=== PATIENT | female | born 1990 | race Two or more races ===

== ENCOUNTER 2018-03-14 00:37 | Emergency (ER) | payer OTHER ==
--- NOTE | 2018-03-14 00:46 | PDOC ---
History of Present Illness - General Chief Complaint: Pain, Acute Stated Complaint: ABDOMINAL PAIN Time Seen by Provider: 03/14/18 00:41 - History of Present Illness Initial Comments: 03/14/18 01:01 This otherwise healthy 27-year-old woman presents with a few hour history of suprapubic to right lower quadrant abdominal pain. Patient states that pain had sudden onset approximately 8:30 PM while she was taking a shower. She states that had a "drawing or twisting" quality initially and was felt in the suprapubic area. Soon radiated to the right lower quadrant and became sharp in nature. She has had some nausea but no vomiting. No fever/chills. She is noted moderate abdominal distention over the last few hours. She denies dysuria /hematuria/urinary frequency or urgency. She has had no constipation or diarrhea. There has been no unusual vaginal discharge recently. Last LMP was approximately 3 weeks ago and was normal. Patient had a similar but milder type of pain approximately 5 years ago when she had salpingitis. She was not admitted for this, stating that she was treated with outpatient antibiotics by her guitar repairer. Patient believes that she was told she has left-sided ovarian cyst but no previous episodes of ovarian cyst rupture. Past History - Past Medical History Allergies/Adverse Reactions: Allergies Allergy/AdvReac Type Severity Reaction Status Date / Time No Known Allergies Allergy Unverified 03/14/18 00:43 Home Medications: Ambulatory Orders Ketorolac Tromethamine [Toradol] 10 mg PO TID PRN #21 tablet 03/14/18 Review of Systems - Review of Systems Able to Perform ROS?: Yes Comments:: 12 point review of systems is negative except for what is noted in the history of present illness *Physical Exam - Physical Exam Comments: GENERAL: Adult female, alert and oriented 3, in moderate distress secondary to lower abdominal pain HEAD: Normal with no signs of trauma. EYES: PERRLA, EOMI, sclera anicteric, conjunctiva clear. ENT: Ears normal, nares patent, oropharynx clear without exudates. Moist mucous membranes. NECK: Normal range of motion, supple without lymphadenopathy, JVD, or masses. LUNGS: Breath sounds equal, clear to auscultation bilaterally. No wheezes, and no crackles. HEART:Regular rate and rhythm, normal S1 and S2 without murmur, rub or gallop. ABDOMEN:.normal bowel sounds mild distention, moderate right lower quadrant/ suprapubic tenderness without masses, mild rebound tenderness present EXTREMITIES: Normal range of motion, no edema. No clubbing or cyanosis. No erythema, or tenderness. NEUROLOGICAL: Cranial nerves II through XII grossly intact. Normal speech. No focal neurological deficits. MUSCULOSKELETAL: Back non-tender to palpation, no CVA tenderness SKIN: Warm, Dry, normal turgor, no rashes or lesions noted. ED Treatment Course - LABORATORY CBC & Chemistry Diagram: 03/14/18 01:05 03/14/18 01:05 Medical Decision Making - Medical Decision Making 03/14/18 02:39 Lab work (CBC, chemistry profile, UA, PGU) essentially normal except for slight elevation of WBC(10,300) Patient given a liter of normal saline IV and Toradol 30 mg IV. Pelvic ultrasound order to rule out ovarian torsion/ovarian cyst or other pelvic abnormalities Patient reports good relief of pain with Toradol 30 mg IV 03/14/18 03:35 Pelvic ultrasound preliminary findings by Imaging manager of application development: Complex, probably hemorrhagic cyst 2.3 by 2.3 cm present in the right ovary; no other abnormalities and no evidence of ovarian torsion. Left ovary is unremarkable. No evidence of free fluid. Results discussed with the patient. She is currently comfortable; she asked for nonsteroidal anti-inflammatory medication "like the one I received IV". Prescription for Toradol PO 10 mg up to 3 times a day (#21) transmitted to her pharmacy. She can alternate this with acetaminophen as needed. The patient did not want any narcotic medications. Patient has been strongly advised to call her guitar repairer on Thursday morning to arrange follow-up within 24 hours. Meanwhile, if she has severe, persistent pain/persistent vomiting/ lightheadedness, she should go to the nearest medical facility/ER *DC/Admit/Observation/Transfer Diagnosis at time of Disposition: Ovarian cyst Qualifiers: Laterality: right Qualified Code(s): N83.201 - Unspecified ovarian cyst, right side - Discharge Dispostion Disposition: HOME Condition at time of disposition: Stable - Prescriptions Prescriptions: Ketorolac Tromethamine [Toradol] 10 mg PO TID PRN #21 tablet PRN Reason: Pain - Referrals - Patient Instructions Printed Discharge Instructions: Ovarian Cyst Additional Instructions: Warm compresses to lower abdomen as needed Toradol 10 mg up to 3 times a day as needed for pain; take with food Can alternate Tylenol with Toradol has needed Call your guitar repairer Thursday to arrange follow-up If you have severe persistent pain, severe vomiting or lightheadedness, go to nearest medical facility/ER - Post Discharge Activity
[2018-03-14 00:50] VITALS: BP 116/87; PULSE 89; TEMP 98.6; BMI 25.4
[2018-03-14] MEDS ORDERED: SODIUM CHLORIDE 1,000 ML IV STA (01:26)
[2018-03-14] MEDS ORDERED: KETOROLAC TROMETHAMINE 30 MG/1 ML VIAL IVPUSH ONE (01:26)
[2018-03-14] MEDS ORDERED: KETOROLAC TROMETHAMINE 30 MG/1 ML VIAL ONE (01:29)
[2018-03-14 01:44] LABS: BASO % 0.4 % (0-2.0); HEMATOCRIT 40.5 % (32.4-45.2); HEMOGLOBIN 14.5 GM/dL (10.7-15.3); LYMPH % 27.9 % (8-40); MCH 31.1 pg (25.7-33.7); MCHC 35.8 g/dl (32.0-36.0); MEAN CELL VOLUME 86.9 fl (80-96); MEAN PLT VOLUME 8.4 fl (7.5-11.1); MONO % 8.3 % (3.8-10.2); NEUT % 62.4 % (42.8-82.8); PLATELET COUNT 280 K/MM3 (134-434); RBC 4.66 M/mm3 (3.60-5.2); RDW 13.3 % (11.6-15.6); WHITE BLOOD COUNT 10.3 K/mm3 (4.0-10.0)
[2018-03-14 01:51] LABS: URINE APPEARANCE CLEAR; URINE BILIRUBIN NEGATIVE (<2.0 mg/dL); URINE COLOR STRAW; URINE GLUCOSE (UA) NEGATIVE (NEGATIVE); URINE KETONE TRACE (NEGATIVE); URINE LEUK ESTERASE NEGATIVE (NEGATIVE); URINE NITRITE NEGATIVE (NEGATIVE); URINE PROTEIN NEGATIVE (NEGATIVE); URINE UROBILINOGEN NEGATIVE mg/dL (0.2-1.0)
[2018-03-14 01:55] LABS: HCG,QUALITATIVE URINE Negative
[2018-03-14 02:15] LABS: ALBUMIN 4.4 g/dl (3.4-5.0); ALK PHOS 69 U/L (45-117); ANION GAP 12 MMOL/L (8-16); BILIRUBIN,TOTAL 0.2 mg/dL (0.2-1); BLOOD UREA NITROGEN 11 mg/dL (7-18); CHLORIDE 105 mmol/L (98-107); CO2 21 mmol/L (21-32); CREATININE 0.6 mg/dL (0.55-1.3); GLUCOSE,RANDOM 84 mg/dL (74-106); POTASSIUM 4.1 mmol/L (3.5-5.1); SGOT/AST 24 U/L (15-37); SGPT/ALT 35 U/L (13-61); SODIUM 138 mmol/L (136-145); TOT PROT 7.9 g/dl (6.4-8.2)
== END 2018-03-14 03:28 | disposition home or self-care (01) ==
LOC: FER 00:37
PROC: 3E0333Z Introduction of Anti-inflammatory into Peripheral Vein, Percutaneous Approach (ICD-10-PCS; principal; 2018-03-14)
PROC: 3E0337Z Introduction of Electrolytic and Water Balance Substance into Peripheral Vein, Percutaneous Approach (ICD-10-PCS; 2018-03-14)
DX: N83.201 Unspecified ovarian cyst, right side (principal)
CPT/HCPCS: 36415; 76856-TC; 80053; 81003; 84703; 85025; 99283-25; J7030